=== PATIENT | female | born 1930 | race Hispanic/Latino ===

== ENCOUNTER 2016-10-22 01:42 | Inpatient (IN) | payer MEDICARE ==
[2016-10-22 02:27] LABS: Bilirubin,Urine NEG (Negative); Blood,Urine SM (Negative); Ketones,Urine TR mg/dL (Negative); Leukocyte Esterase,Urine TR (Negative); Nitrite,Urine POS (Negative); Protein,Urine <15 mg/dL mg/dL (Negative); Urobilinogen,Urine < 2.0 mg/dL (<2.0)
[2016-10-22 02:53] LABS: Alanine Aminotransferase 27 units/L (7-56); Albumin 3.3 g/dL (3.9-5); Albumin/Globulin Ratio 1.4 %; Alkaline Phosphatase 51 units/L (35-129); Anion Gap 15 mmol/L; Bilirubin,Total 0.5 mg/dL (0.1-1.2); Blood Urea Nitrogen 9 mg/dL (7-17); Calcium 7.9 mg/dL (8.4-10.2); Carbon Dioxide 21 mmol/L (22-30); Chloride 85.2 mmol/L (98-107); Glucose 129 mg/dL (65-100); Potassium 3.2 mmol/L (3.6-5.0); Total Protein 5.7 g/dL (6.3-8.2)
[2016-10-22 03:07] LABS: Sodium 119 mmol/L (137-145)
[2016-10-22] MEDS ORDERED: NACL 0.9% 1000 ML 1,000 ML ONE (04:03)
--- NOTE | 2016-10-22 04:06 | Emergency Department Report ---
- General Chief complaint: Weakness Stated complaint: FEVER Time Seen by Provider: 10/22/16 03:49 Source: patient, family, EMS Mode of arrival: Stretcher Limitations: Physical Limitation - History of Present Illness Initial comments: This is a pleasant 86-year-old female who indicates that she had increased weakness over the last 2 days. She finally called her son for help. He found her in a condition where she was unable even to get to the door to help him in. She has been needing to use the bathroom frequently. She reports several falls she has not hurt her head in anyway during these falls. She does have some mild tenderness in her left knee from the fall however. She states that she's had increased urination. She's had some burning with urination as well. Fever was noted to be 102 at home prior to arrival. He was noted to be profoundly weak as well. She denies any chest pain or cough she denies sore throat or headache. She denies any lesions on her skin. No abdominal pain no vomiting or diarrhea. Severity scale (0 -10): 0 - Related Data Home Medications Medication Instructions Recorded Confirmed Last Taken Aspirin [Aspirin BABY CHEW TAB] 81 mg PO DAILY 10/22/16 10/22/16 1 Day Ago 81 Hydralazine HCl [Apresoline TAB] 50 mg PO DAILY 10/22/16 10/22/16 1 Day Ago 50 Levothyroxine [Synthroid] 75 mcg PO QAM 10/22/16 10/22/16 1 Day Ago 75mcg Allergies Allergy/AdvReac Type Severity Reaction Status Date / Time ciprofloxacin Allergy Unknown Verified 05/09/14 07:43 codeine Allergy Unknown Verified 05/09/14 07:43 ED Review of Systems ROS: Stated complaint: FEVER Other details as noted in HPI Comment: All other systems reviewed and negative Constitutional: chills, fever, weakness Eyes: denies: eye pain, eye discharge, vision change ENT: denies: ear pain, throat pain Respiratory: denies: cough, shortness of breath, wheezing Cardiovascular: denies: chest pain, palpitations Endocrine: no symptoms reported Gastrointestinal: denies: abdominal pain, nausea, diarrhea Genitourinary: urgency, dysuria. denies: discharge Musculoskeletal: denies: back pain, joint swelling, arthralgia Skin: denies: rash, lesions Neurological: denies: headache, weakness, paresthesias Psychiatric: denies: anxiety, depression Hematological/Lymphatic: denies: easy bleeding, easy bruising ED Past Medical Hx - Past Medical History Previous Medical History?: Yes Hx Hypertension: Yes Hx COPD: Yes Additional medical history: hypothyroid,gerd,divertic - Surgical History Past Surgical History?: No - Social History Smoking Status: Never Smoker Substance Use Type: None - Medications Home Medications: Home Medications Medication Instructions Recorded Confirmed Last Taken Type Aspirin [Aspirin BABY CHEW TAB] 81 mg PO DAILY 10/22/16 10/22/16 1 Day Ago History 81 Hydralazine HCl [Apresoline TAB] 50 mg PO DAILY 10/22/16 10/22/16 1 Day Ago History 50 Levothyroxine [Synthroid] 75 mcg PO QAM 10/22/16 10/22/16 1 Day Ago History 75mcg ED Physical Exam - General Limitations: Physical Limitation General appearance: alert, in distress (due to weakness) - Head Head exam: Present: atraumatic, normocephalic - Eye Eye exam: Present: normal appearance, EOMI. Absent: scleral icterus - ENT ENT exam: Present: mucous membranes dry, other (no oral lesions. No pharyngeal erythema.) - Neck Neck exam: Present: normal inspection, full ROM. Absent: tenderness, meningismus, lymphadenopathy - Respiratory Respiratory exam: Present: normal lung sounds bilaterally. Absent: respiratory distress, wheezes, rales - Cardiovascular Cardiovascular Exam: Present: regular rate, normal rhythm. Absent: systolic murmur, diastolic murmur, rubs, gallop - GI/Abdominal GI/Abdominal exam: Present: soft, normal bowel sounds. Absent: distended, tenderness, organomegaly, pulsatile mass - Extremities Exam Extremities exam: Present: normal inspection, full ROM. Absent: tenderness - Back Exam Back exam: Present: normal inspection - Neurological Exam Neurological exam: Present: alert, oriented X3 - Psychiatric Psychiatric exam: Present: normal affect, normal mood - Skin Skin exam: Present: warm, dry, intact, normal color. Absent: rash ED Course Vital Signs 10/22/16 10/22/16 10/22/16 01:53 02:01 02:20 Temperature 99.2 F 99.2 F Pulse Rate 72 72 Respiratory 16 16 16 Rate Blood Pressure 138/62 Blood Pressure 138/62 138/62 [Left] O2 Sat by Pulse 96 96 Oximetry 10/22/16 04:22 Temperature Pulse Rate 66 Respiratory 16 Rate Blood Pressure Blood Pressure 162/64 [Left] O2 Sat by Pulse 97 Oximetry - Reevaluation(s) Reevaluation #1: 10/22/16 03:49 ECG at 02 35 with sinus rhythm at 66 bpm with a normal CT and QRS. Normal axis is noted as well. There are some nonspecific T-wave inversions noted no reciprocal is noted however. Reevaluation #2: 10/22/16 06:12 Patient was afebrile upon presentation here. She did have 1000 g of Tylenol prior to arrival however. She clinically does appear dehydrated. She does appear quite weak and frail as well. There are some left to rule out abnormalities noted with the sodium of 119 and potassium 3.2. With the story of having a low sodium at [address] [place] [id number] 2 weeks ago I am less inclined to think this is an acute drop in sodium. Regardless patient was given some volume replacement here. Urinalysis does demonstrate some mild infection. Does not appear that impressive however. Patient was started on antibiotics I did select Rocephin initially. Lactate is still pending. Blood cultures were drawn 2. Chest x-ray was unremarkable in general. My suspicion is the primary etiology for the infection is urine. Patient quite weak surprisingly she does not meet any criteria for sepsis. I feel she is a brittle patient however. Did speak with the hospitalist for admission. 10/22/16 06:13 ED Medical Decision Making - Lab Data Result diagrams: 10/22/16 04:46 10/22/16 02:15 - Radiology Data interpreted by me: nml cardiac silhouette. no pna. Critical care attestation.: If time is entered above; I have spent that time in minutes in the direct care of this critically ill patient, excluding procedure time. ED Disposition Clinical Impression: Hyponatremia Fever Qualifiers: Encounter type: initial encounter UTI (urinary tract infection) Qualifiers: Urinary tract infection type: acute cystitis Hematuria presence: without hematuria Qualified Code(s): N30.00 - Acute cystitis without hematuria Disposition: OP ADMITTED IP TO THIS HOSP Is pt being admited?: Yes Does the pt Need Aspirin: No Condition: Stable Referrals: SARAH MONTANA JR, MD [Primary Care Provider] - 3-5 Days Time of Disposition: 05:21
[2016-10-22] MEDS ORDERED: NACL 0.9% 1000 ML 1,000 ML IV ONE ×2 (04:23→22:26)
[2016-10-22 05:13] LABS: Basophils % (Auto) 0.4 % (0.0-1.8); Eosinophils % (Auto) 0.8 % (0.0-4.3); Hematocrit 32.8 % (30.3-42.9); Mean Corpuscular HGB Conc 34 % (30-34); Mean Corpuscular Hemoglobin 29 pg (28-32); Mean Corpuscular Volume 86 fl (79-97); Platelet Count 216 K/mm3 (140-440); Red Blood Count 3.81 M/mm3 (3.65-5.03); Red Cell Distribution Width 13.9 % (13.2-15.2); White Blood Count 5.3 K/mm3 (4.5-11.0)
[2016-10-22] MEDS ORDERED: ROCEPHIN/NS 1 GM/50 ML 1 GM/50 ML BAG IV ONE (05:17)
[2016-10-22] MEDS ORDERED: DULCOLAX PR PRN (05:55)
[2016-10-22] MEDS ORDERED: TYLENOL PO PRN (05:55)
[2016-10-22] MEDS ORDERED: MILK OF MAGNESIA PO PRN (05:55)
[2016-10-22] MEDS ORDERED: ZOFRAN IV PRN (05:55)
--- NOTE | 2016-10-22 05:58 | Admit Criteria Form ---
Admission Criteria Documentation: HYPONATREMIA; HYPERNATREMIA; HYPOKALEMIA; HYPERKALEMIA; HYPOCALCEMIA; HYPERCALCEMIA Clinical Indications for Inpatient Care (Place 'X' for any and all applicable criteria): Ongoing inpatient care may be indicated for ANY ONE of the following [G](1)(2)(3 )(5): [ X]I. Hyponatremia with ANY ONE of the following: [X ]a) Sodium less than 130 mEq/L (mmol/L) (new) (6)(22) [ ]b) Sodium less than 135 mEq/L (mmol/L) with ANY ONE of the following: [ ]i) Severe medical etiology requiring inpatient management (eg, heart failure, hypovolemia) [ ]ii) Altered mental status [ ]iii) Seizures [ ]II. Hypernatremia with ANY ONE of the following: [ ]a) Sodium greater than 155 mEq/L (mmol/L) [ ]b) Sodium greater than 150 mEq/L (mmol/L) with ANY ONE of the following: [ ] i) Altered mental status [ ]ii) Seizures [ ]iii) Severe medical etiology (eg, hypovolemia, diabetes insipidus) [ ]iv) Severe weakness [ ]v) Severe medical etiology (eg, hemolysis, infection, drug overdose) [ ]III. Hypokalemia with ANY ONE of the following: [ ]a) Potassium less than 2.5 mEq/L (mmol/L) despite outpatient and emergency treatment [ ]b) Potassium less than 3.0 mEq/L (mmol/L) with ANY ONE of the following: [ ]i) Weakness [ ]ii) Cardiac abnormality (eg, arrhythmia, conduction disturbance) [ ]iii) Cardiac ischemia [ ]iv) Ileus [ ]v) Ongoing medical cause requiring inpatient management. ( e.g., acute renal wasting, SIADH) [ ]vi) Other severe symptoms [ ] IV. Hyperkalemia with ANY ONE of the following: [ ]a) Potassium greater than 6.5 mEq/L (mmol/L) [ ]b) Potassium greater than 5 mEq/L (mmol/L) with ANY ONE of the following: [ ]i) Severe ECG findings [H] [ ]ii) Acute worsening of renal failure (creatinine greater than 2.5 mg/dL (221 micromoles/L) or significant elevation for age and size) [ ] V. Hypocalcemia with ANY ONE of the following: [ ]a) Calcium less than 7 mg/dL (1.75 mmol/L) despite outpatient and emergency treatment(19) [ ]b) Calcium less than 8 mg/dL (2 mmol/L) with significant symptoms or findings; examples include: [ ]i) Cardiac abnormality (eg, arrhythmia or conduction disturbance) [ ]ii) Altered mental status [ ]iii) Seizures [ ]iv) Breathing difficulty [ ]v) Muscle spasms [ ]. Hypercalcemia with ANY ONE of the following: [ ]a) Calcium greater than 14 mg/dL (3.5 mmol/L) [ ]b) Calcium greater than 12 mg/dL (3 mmol/L) with ANY ONE of the following: [ ]i) Significant dehydration or hypovolemia as indicated by ANY ONE of the following(2): [ ]1. Clinically significant dehydration as indicated by ANY ONE of the following: [ ]A. Acute loss of weight from baseline (5% of body weight in adults, 9% in pediatric patients) [ ]B. Hemodynamic instability [ ]C. Acute renal failure [ ]D. Serum sodium greater than 150 mEq/L (mmol/L) [ ]2) Dehydration that is persistent indicated by ALL of the following: [ ]A. Oral rehydration therapy not tolerated or insufficient to adequately correct dehydration [ ]B. Appropriate intravenous treatment (eg, fluids ) does not readily correct dehydration ie, after 12 to 24 hours of treatment) [ ]ii) Significant symptoms or findings; examples include: [ ]1) Altered mental status [ ]2) Cardiac abnormality (eg, arrhythmia, conduction disturbance) [ ]3) Cardiac abnormality (eg, arrhythmia, conduction disturbance) The original [employer] of [facility] [employer] content created by [employer] has been revised. The portions of the content which have been revised are identified through the use of italic text or in bold, and [facility] has neither reviewed nor approved the modified material. All other unmodified content is copyright [facility] [employer] Please see references footnoted in the original [facility] [employer] edition 2016 Admission Criteria Met: Yes
[2016-10-22] MEDS ORDERED: NACL 0.9% 1000 ML 1,000 ML IV SCH (06:00)
--- NOTE | 2016-10-22 06:06 | History and Physical Report ---
History of Present Illness Date of examination: 10/22/16 History of present illness: 86-year-old woman with a history of hypertension, hypothyroidism, GERD comes emergency room because of fever and frequent urination. Also Described of the Patient's 7 Generalized Weakness, and Has Had Multiple Falls over the Last Few Days. She was admitted at [facility] 2 weeks ago for hyponatremia, her diuretic was discontinued and she was started on hydralazine 50 mg twice a day. The patient as been feeling dizzy and sleeping all day, she followed up with her primary care who cut the medications and half. The patient was still symptomatic, they told her to take half in the morning and 1 at night. The patient dizziness worsened, the son went to check on her, he thinks the patient took 75mg of the hydralazine instead of 25 mg. Patient denies chest pain, palpitation, shortness of breath, cough, abdominal pain, hematochezia, dysuria, frequency, focal weakness, dysarthria, polydipsia hot or cold intolerance, easy bruisability, or rash or bleeding from mucosal membrane, rhinorrhea, epistaxis, earache, tinnitus, blurry vision, eye discharge , anxiety, depression. Other review of systems negative PAST SURGICAL HISTORY: None SOCIAL HISTORY: Denies alcohol, tobacco, drugs FAMILY HISTORY: Hypertension Medications and Allergies Allergies Allergy/AdvReac Type Severity Reaction Status Date / Time ciprofloxacin Allergy Unknown Verified 05/09/14 07:43 codeine Allergy Unknown Verified 05/09/14 07:43 Home Medications Medication Instructions Recorded Confirmed Last Taken Type Aspirin [Aspirin BABY CHEW TAB] 81 mg PO DAILY 10/22/16 10/22/16 1 Day Ago History 81 Hydralazine HCl [Apresoline TAB] 50 mg PO DAILY 10/22/16 10/22/16 1 Day Ago History 50 Levothyroxine [Synthroid] 75 mcg PO QAM 10/22/16 10/22/16 1 Day Ago History 75mcg Exam - Physical Exam Narrative exam: Gen. appearance: Patient lying in bed, no apparent distress HEENT: Normocephalic, atraumatic, pupils equally round and reactive to light, extraocular movement intact, and no sclericterus,. No JVD or thyromegaly or nodule,neck supple, no carotid bruit ,mucous membranes moist, no exudate or erythema Heart: S1, S2, regular rate and rhythm Lungs: Clear to auscultation bilaterally, breathing comfortable Abdomen: Positive bowel sounds, nontender, nondistended, no organomegaly Extremity: No edema, cyanosis, clubbing Skin: No rash, nodules, warm, dry Neuro: Oriented 3, cranial nerves II-12 intact, speech is fluent, motor and sensory intact - Constitutional Vitals: Temp Pulse Resp BP Pulse Ox 99.2 F 66 16 162/64 97 10/22/16 02:01 10/22/16 04:22 10/22/16 04:22 10/22/16 04:22 10/22/16 04:22 Results - Labs CBC & Chem 7: 10/22/16 04:46 10/22/16 02:15 Labs: Abnormal lab results 10/22/16 10/22/16 10/22/16 Range/Units 02:15 02:15 04:46 Lymph % (Auto) 3.8 L (13.4-35.0) % Lymph # 0.2 L (1.2-5.4) K/mm3 Seg Neutrophils % 87.7 H (40.0-70.0) % Sodium 119 L* (137-145) mmol/L Potassium 3.2 L (3.6-5.0) mmol/L Chloride 85.2 L (98-107) mmol/L Carbon Dioxide 21 L (22-30) mmol/L Creatinine 0.5 L (0.7-1.2) mg/dL Glucose 129 H (65-100) mg/dL Calcium 7.9 L (8.4-10.2) mg/dL AST 55 H (5-40) units/L Total Protein 5.7 L (6.3-8.2) g/dL Albumin 3.3 L (3.9-5) g/dL Urine WBC (Auto) 14.0 H (0.0-6.0) /HPF - Imaging and Cardiology EKG: image reviewed Chest x-ray: image reviewed Assessment and Plan Severe hyponatremia Urinary tract infection Hypertension Hypothyroidism Admits medicine Start IV fluid, monitor sodium, consult renal Start IV Rocephin, follow cultures Continue appropriate outpatient medications, start DVT prophylaxis
--- NOTE | 2016-10-22 07:49 | XRay Report ---
AP CHEST: HISTORY: Fever There is mild hyperinflation which is unchanged since 06/11/16. The lungs are clear. Heart size is at the upper limits of normal. Normal pulmonary vascularity. IMPRESSION: Mild hyperinflation. No acute cardiopulmonary process.
[2016-10-22] MEDS: LOVENOX SUB-Q SCH (10:39)
[2016-10-22] MEDS: SYNTHROID PO SCH (11:54)
[2016-10-22 13:36] LABS: Anion Gap 17 mmol/L; Blood Urea Nitrogen 7 mg/dL (7-17); Calcium 8.1 mg/dL (8.4-10.2); Carbon Dioxide 23 mmol/L (22-30); Chloride 93.6 mmol/L (98-107); Glucose 126 mg/dL (65-100); Potassium 3.3 mmol/L (3.6-5.0); Sodium 130 mmol/L (137-145)
--- NOTE | 2016-10-22 15:00 | Progress Note ---
Assessment and Plan Assessment and plan: Patient is a 86-year-old woman with a history of hypertension and hypothyroidism who presents with altered mental status. Recently patient has been on a primary care provider getting her blood pressure medication adjusted. She was on diuretics but sodium level was too low. She was changed to the hydralazine twice a day but it was making her dizzy. She was admitted overnight with a sodium level 119, reports that she was hypovolemic/dry. I repeated her sodium level at noon and it was 130; which is being corrected too fast. So I stopped the IVF. I do not think she needs dextrose or desmopressin because she has not overcorrected yet. Await nephrology. -Acute metabolic encephalopathy, poa -Severe hyponatremia: Repeat BMP a.m. await nephrology -Hypertension, chronic and worsening: Stop hydralazine start Norvasc -Hypothyroidism restarted her levothyroxine, TSH normal -UTI, allergic to Cipro: IV Rocephin await urine culture History Interval history: Patient seen and examined. Follow up on altered mental status which is resolved. Overnight uneventful. No cp, sob, n/v or severe headaches. Imaging, old records, testing, labs, nursing notes reviewed. Plan discussed with patient. Son Yovanny at bedside Hospitalist Physical - Physical exam Narrative exam: GEN: WDWN, NAD, AWAKE, ALERT, ORIENTATED 3 HEENT: NCAT, PERRL, EOMI, OP CLEAR NECK: SUPPLE, NO THYROMEGALY, NO JVD, NO LAD CVS: RRR, NORMAL S1S2 LUNGS/CHEST: CTA B, NORMAL CHEST EXPANSION B, GOOD AIR ENTRY B ABD: SOFT, MILD SUPRAPUBIC TENDERNESS WITHOUT DISTENTION, GBS, NO REBOUND OR GUARDING EXT/SKIN: NO SIGNIFICANT EDEMA OR RASH, appears euvolemic MSK: FROM X 4 EXTREMITIES NEURO: CN 2-12 GROSSLY INTACT except for hearing, NO new FOCAL DEFICITS PSY: CALM - Constitutional Vitals: Temp Pulse Resp BP Pulse Ox 100.4 F H 64 14 159/66 98 10/22/16 11:00 10/22/16 07:40 10/22/16 07:40 10/22/16 07:40 10/22/16 07:40 Results - Labs CBC & Chem 7: 10/23/16 04:27 10/23/16 04:27 Labs: Laboratory Last Values WBC 5.3 K/mm3 (4.5-11.0) 10/22/16 04:46 RBC 3.81 M/mm3 (3.65-5.03) 10/22/16 04:46 Hgb 11.0 gm/dl (10.1-14.3) 10/22/16 04:46 Hct 32.8 % (30.3-42.9) 10/22/16 04:46 MCV 86 fl (79-97) 10/22/16 04:46 MCH 29 pg (28-32) 10/22/16 04:46 MCHC 34 % (30-34) 10/22/16 04:46 RDW 13.9 % (13.2-15.2) 10/22/16 04:46 Plt Count 216 K/mm3 (140-440) 10/22/16 04:46 Lymph % (Auto) 3.8 % (13.4-35.0) L 10/22/16 04:46 Hart % (Auto) 7.3 % (0.0-7.3) 10/22/16 04:46 Eos % (Auto) 0.8 % (0.0-4.3) 10/22/16 04:46 Baso % (Auto) 0.4 % (0.0-1.8) 10/22/16 04:46 Lymph # 0.2 K/mm3 (1.2-5.4) L 10/22/16 04:46 Hart # 0.4 K/mm3 (0.0-0.8) 10/22/16 04:46 Eos # 0.0 K/mm3 (0.0-0.4) 10/22/16 04:46 Baso # 0.0 K/mm3 (0.0-0.1) 10/22/16 04:46 Seg Neutrophils % 87.7 % (40.0-70.0) H 10/22/16 04:46 Seg Neutrophils # 4.6 K/mm3 (1.8-7.7) 10/22/16 04:46 Sodium 130 mmol/L (137-145) L D 10/22/16 12:54 Potassium 3.3 mmol/L (3.6-5.0) L 10/22/16 12:54 Chloride 93.6 mmol/L (98-107) L 10/22/16 12:54 Carbon Dioxide 23 mmol/L (22-30) 10/22/16 12:54 Anion Gap 17 mmol/L 10/22/16 12:54 BUN 7 mg/dL (7-17) 10/22/16 12:54 Creatinine 0.5 mg/dL (0.7-1.2) L 10/22/16 12:54 Estimated GFR > 60 ml/min 10/22/16 12:54 BUN/Creatinine Ratio 14.00 % 10/22/16 12:54 Glucose 126 mg/dL (65-100) H 10/22/16 12:54 Lactic Acid 0.8 mmol/L (0.7-2.0) 10/22/16 04:46 Calcium 8.1 mg/dL (8.4-10.2) L 10/22/16 12:54 Total Bilirubin 0.5 mg/dL (0.1-1.2) 10/22/16 02:15 AST 55 units/L (5-40) H 10/22/16 02:15 ALT 27 units/L (7-56) 10/22/16 02:15 Alkaline Phosphatase 51 units/L (35-129) 10/22/16 02:15 Total Protein 5.7 g/dL (6.3-8.2) L 10/22/16 02:15 Albumin 3.3 g/dL (3.9-5) L 10/22/16 02:15 Albumin/Globulin Ratio 1.4 % 10/22/16 02:15 TSH 1.020 mlU/mL (0.270-4.200) 10/22/16 02:15 Urine Color Yellow (Yellow) 10/22/16 02:15 Urine Turbidity Clear (Clear) 10/22/16 02:15 Urine pH 6.0 (5.0-7.0) 10/22/16 02:15 Ur Specific [place] 1.010 (1.003-1.030) 10/22/16 02:15 Urine Protein <15 mg/dl mg/dL (Negative) 10/22/16 02:15 Urine Glucose (UA) 50 mg/dL (Negative) 10/22/16 02:15 Urine Ketones Tr mg/dL (Negative) 10/22/16 02:15 Urine Blood Sm (Negative) 10/22/16 02:15 Urine Nitrite Pos (Negative) 10/22/16 02:15 Urine Bilirubin Neg (Negative) 10/22/16 02:15 Urine Urobilinogen < 2.0 mg/dL (<2.0) 10/22/16 02:15 Ur Leukocyte Esterase Tr (Negative) 10/22/16 02:15 Urine WBC (Auto) 14.0 /HPF (0.0-6.0) H 10/22/16 02:15 Urine RBC (Auto) 2.0 /HPF (0.0-6.0) 10/22/16 02:15 U Epithel Cells (Auto) 1.0 /HPF (0-13.0) 10/22/16 02:15 Amorphous Crystals Few 10/22/16 02:15
--- NOTE | 2016-10-22 18:07 | Consultation ---
History of Present Illness - Reason for Consult Consult date: 10/22/16 hyponatremia Requesting physician: JOHN FERGUSON - History of Present Illness 86-year-old woman with a history of hypertension, hypothyroidism, GERD comes emergency room because of fever and frequent urination x 2 days duration. In association with that she c/o generalized Weakness and Has Had Multiple Falls over the last Few Days. She was admitted at [facility] 2 weeks ago for hyponatremia, her diuretic was discontinued and she was started on hydrazine 50 mg twice a day for her BP. Her hydrazine dose was reduced by her PCP after she c/o dizziness. On arrival to the ED her initial labs showed that she has a sodium level of 119. She was given a litre of 0.9 NS bolus in ED and started on 75 cc/ hr of 0.9 NS. Repeat sodium level at noon (about 9 hrs after admission) her sodium has been corrected to 130. We are consulted to assist with management of her hyponatremia ? fast correction. Past History Past Medical History: other ( hypertension, hypothyroidism, GERD, hyponatremia, falls, dizziness, UTI) Past Surgical History: No surgical history Social history: denies: smoking, alcohol abuse, IV drug use Family history: hypertension Medications and Allergies Allergies Allergy/AdvReac Type Severity Reaction Status Date / Time ciprofloxacin Allergy Unknown Verified 05/09/14 07:43 codeine Allergy Unknown Verified 05/09/14 07:43 Home Medications Medication Instructions Recorded Confirmed Last Taken Type Aspirin [Aspirin BABY CHEW TAB] 81 mg PO DAILY 10/22/16 10/22/16 1 Day Ago History 81 Hydralazine HCl [Apresoline TAB] 50 mg PO DAILY 10/22/16 10/22/16 1 Day Ago History 50 Levothyroxine [Synthroid] 75 mcg PO QAM 10/22/16 10/22/16 1 Day Ago History 75mcg Active Meds: Active Medications Acetaminophen (Tylenol) 650 mg PO Q4H PRN PRN Reason: Pain MILD(1-3)/Fever >100.5/TORRES Bisacodyl (Dulcolax) 10 mg AR QDAY PRN PRN Reason: Constipation unrelieved by MOM Enoxaparin Sodium (Lovenox) 40 mg SUB-Q QDAY ASHTYN Last Admin: 10/22/16 10:39 Dose: 40 mg Ceftriaxone Sodium (Rocephin/Ns 1 Gm/50 Ml) 1 gm in 50 mls @ 100 mls/hr IV Q24H [facility] Levothyroxine Sodium (Synthroid) 75 mcg PO DAILY@0600 [facility] Last Admin: 10/22/16 11:54 Dose: 75 mcg Magnesium Hydroxide (Milk Of Magnesia) 30 ml PO Q4H PRN PRN Reason: Constipation Review of Systems Constitutional: fatigue, weakness, malaise, lethargy, poor appetite, no weight loss, no weight gain Ears, nose, mouth and throat: no nose pain, no nasal congestion Breasts: deferred Cardiovascular: no chest pain, no orthopnea, no palpitations Respiratory: no cough, no cough with sputum, no hemoptysis, no shortness of breath Gastrointestinal: no abdominal pain, no nausea, no vomiting Genitourinary Female: no pelvic pain, no flank pain Rectal: no pain, no incontinence Musculoskeletal: no neck stiffness, no neck pain Integumentary: no rash, no pruritis, no redness Neurological: weakness, other (falls), no parathesias, no numbness, no tingling , no seizures, no syncope Psychiatric: no anxiety, no memory loss, no insomnia, no hypersomnia Endocrine: no cold intolerance, no heat intolerance Hematologic/Lymphatic: no easy bruising, no easy bleeding Allergic/Immunologic: no urticaria, no allergic rhinitis Exam - Vital Signs Vital signs: Vital Signs Temp Pulse Resp BP Pulse Ox 99.2 F 72 16 138/62 96 10/22/16 01:53 10/22/16 01:53 10/22/16 01:53 10/22/16 01:53 10/22/16 01:53 - General Appearance General appearance: well-developed, well-nourished, appears stated age, fatigue , frail EENT: ATNC, PERRL, mucous membranes moist Neck: Present: neck supple, trachea midline. Absent: JVD/HJR, Masses Respiratory: Clear to Ascultation Heart: regular, normal heart rate, S1S2, no murmurs Gastrointestinal: Present: normal, normoactive bowel sounds. Absent: tenderness , distended, masses, guarding Integumentary: no rash, warm and dry Neurologic: no focal deficit, alert and oriented x3, strength 5/5 Musculoskeletal: Absent: deformities, joint swelling Psychiatric: mood/affect appropriate, cooperative Results - Lab Results 10/22/16 04:46 10/22/16 12:54 Most recent lab results Calcium 8.1 mg/dL (8.4-10.2) L 10/22/16 12:54 Assessment and Plan 1. Hypovolemic hyponatremia 2. Hypokalemia 3. UTI 4. Frequent falls likley 2/2 hyponatremia 5. Hx of Hypothyroidism 6. Essential HTN Plan: Obtain Urine OSM, Serum OSM, Urinelytes, TSH, Cortisol levels CxR unremarkable Her sodium corrected rapidly in the first 9 hours. Will recheck sodium level stat, if it continues to rise will plan for D5W/DDAVP. Goal rate of correction is 10-12 in 24 hrs. Follow up on urine culture Antibiotics Further recommendations to follow based on repeat labs. Thank you for the consult.
[2016-10-22 20:04] LABS: Anion Gap 13 mmol/L; Blood Urea Nitrogen 7 mg/dL (7-17); Calcium 7.6 mg/dL (8.4-10.2); Carbon Dioxide 22 mmol/L (22-30); Chloride 86.5 mmol/L (98-107); Glucose 173 mg/dL (65-100); Uric Acid 2.4 mg/dL (3.5-7.6)
[2016-10-22 22:19] LABS: Sodium 119 mmol/L (137-145)
[2016-10-22 22:20] LABS: Potassium 2.8 mmol/L (3.6-5.0)
--- NOTE | 2016-10-22 22:24 | Event Note ---
Date: 10/22/16 After several phone calls to the lab they finally told us (Na, K not posted on [employer]) the results of the BMP drawn at 18:00. Per lab they were calibrating and checking controls as the results are different from before. The Sodium is at 119 and K is at 2.8. It was rerun on a different equipment. Plan: Will start back IVF 0.9 NS Replete potassium and check magnesium Repeat labs requested in 4 hrs. Discussed with RN to call us with labs for further management
[2016-10-22] MEDS: KCL 10MEQ/100ML 10 MEQ/100 ML BAG IV SCH (22:55)
[2016-10-22 23:22] LABS: Blood Urea Nitrogen 6 mg/dL (7-17); Calcium 7.8 mg/dL (8.4-10.2); Carbon Dioxide 24 mmol/L (22-30); Glucose 92 mg/dL (65-100); Magnesium 1.9 mg/dL (1.7-2.3)
[2016-10-22 23:23] LABS: Anion Gap 14 mmol/L; Chloride 93.2 mmol/L (98-107); Potassium 3.1 mmol/L (3.6-5.0); Sodium 128 mmol/L (137-145)
[2016-10-23] MEDS: KCL 10MEQ/100ML 10 MEQ/100 ML BAG IV SCH (01:08)
[2016-10-23 05:17] LABS: Anion Gap 14 mmol/L; Blood Urea Nitrogen 5 mg/dL (7-17); Calcium 7.9 mg/dL (8.4-10.2); Carbon Dioxide 24 mmol/L (22-30); Chloride 94.7 mmol/L (98-107); Glucose 99 mg/dL (65-100); Potassium 3.1 mmol/L (3.6-5.0); Sodium 130 mmol/L (137-145)
[2016-10-23 05:35] LABS: Basophils % (Auto) 0.4 % (0.0-1.8); Eosinophils % (Auto) 3.6 % (0.0-4.3); Hemoglobin 11.3 gm/dl (10.1-14.3); Mean Corpuscular HGB Conc 34 % (30-34); Mean Corpuscular Hemoglobin 29 pg (28-32); Mean Corpuscular Volume 85 fl (79-97); Platelet Count 206 K/mm3 (140-440); Red Blood Count 3.86 M/mm3 (3.65-5.03); Red Cell Distribution Width 13.9 % (13.2-15.2); White Blood Count 5.8 K/mm3 (4.5-11.0)
[2016-10-23] MEDS: ROCEPHIN/NS 1 GM/50 ML 1 GM/50 ML BAG IV SCH (06:08)
[2016-10-23] MEDS: SYNTHROID PO SCH (06:08)
[2016-10-23] MEDS ORDERED: K-DUR PO ONE (07:13)
[2016-10-23] MEDS: LOVENOX SUB-Q SCH (10:09)
--- NOTE | 2016-10-23 10:11 | Progress Note ---
Assessment and Plan Assessment and plan: Patient is a 86-year-old woman with a history of hypertension and hypothyroidism who presents with altered mental status. Recently patient has been on a primary care provider getting her blood pressure medication adjusted. She was on diuretics but sodium level was too low. She was changed to the hydralazine twice a day but it was making her dizzy. She was admitted overnight with a sodium level 119, reports that she was hypovolemic/dry. I repeated her sodium level at noon and it was 130; which is being corrected too fast. So I stopped the IVF. I do not think she needs dextrose or desmopressin because she has not overcorrected yet. Await nephrology==>restarted ivf and following levels closely. -Acute metabolic encephalopathy, poa, resolved -Severe hyponatremia: Repeat BMP a.m. await nephrology -Hypertension, chronic and worsening: Stop hydralazine start Norvasc -Hypothyroidism restarted her levothyroxine, TSH normal -UTI, allergic to Cipro: IV Rocephin await urine culture Anticipate discharge tomorrow if sodium level is around 130 or above History Interval history: Patient seen and examined. Follow up on altered mental status which has resolved. Overnight uneventful. No cp, sob, n/v or severe headaches. Imaging, old records, testing, labs, nursing notes reviewed. Plan discussed with patient. Hospitalist Physical - Physical exam Narrative exam: GEN: WDWN, NAD, AWAKE, ALERT, ORIENTATED 3 CVS: RRR, NORMAL S1S2 LUNGS/CHEST: CTA B, NORMAL CHEST EXPANSION B, GOOD AIR ENTRY B ABD: SOFT, MILD SUPRAPUBIC TENDERNESS WITHOUT DISTENTION, GBS, NO REBOUND OR GUARDING EXT/SKIN: NO SIGNIFICANT EDEMA OR RASH, appears euvolemic MSK: FROM X 4 EXTREMITIES NEURO: CN 2-12 GROSSLY INTACT except for hearing, NO new FOCAL DEFICITS PSY: CALM - Constitutional Vitals: Temp Pulse Resp BP Pulse Ox 97.9 F 72 16 148/69 95 10/23/16 08:00 10/23/16 08:00 10/23/16 08:00 10/23/16 08:00 10/23/16 08:00 Results - Labs CBC & Chem 7: 10/23/16 04:27 10/23/16 04:27 Labs: Laboratory Last Values WBC 5.8 K/mm3 (4.5-11.0) 10/23/16 04:27 RBC 3.86 M/mm3 (3.65-5.03) 10/23/16 04:27 Hgb 11.3 gm/dl (10.1-14.3) 10/23/16 04:27 Hct 33.0 % (30.3-42.9) 10/23/16 04:27 MCV 85 fl (79-97) 10/23/16 04: MCH 29 pg (28-32) 10/23/16 04:27 MCHC 34 % (30-34) 10/23/16 04:27 RDW 13.9 % (13.2-15.2) 10/23/16 04:27 Plt Count 206 K/mm3 (140-440) 10/23/16 04:27 Lymph % (Auto) 7.7 % (13.4-35.0) L 10/23/16 04:27 Young % (Auto) 8.6 % (0.0-7.3) H 10/23/16 04:27 Eos % (Auto) 3.6 % (0.0-4.3) 10/23/16 04:27 Baso % (Auto) 0.4 % (0.0-1.8) 10/23/16 04:27 Lymph # 0.4 K/mm3 (1.2-5.4) L 10/23/16 04:27 Young # 0.5 K/mm3 (0.0-0.8) 10/23/16 04:27 Eos # 0.2 K/mm3 (0.0-0.4) 10/23/16 04:27 Baso # 0.0 K/mm3 (0.0-0.1) 10/23/16 04:27 Seg Neutrophils % 79.7 % (40.0-70.0) H 10/23/16 04:27 Seg Neutrophils # 4.7 K/mm3 (1.8-7.7) 10/23/16 04:27 Sodium 130 mmol/L (137-145) L 10/23/16 04:27 Potassium 3.1 mmol/L (3.6-5.0) L 10/23/16 04:27 Chloride 94.7 mmol/L (98-107) L 10/23/16 04:27 Carbon Dioxide 24 mmol/L (22-30) 10/23/16 04:27 Anion Gap 14 mmol/L 10/23/16 04:27 BUN 5 mg/dL (7-17) L 10/23/16 04:27 Creatinine 0.5 mg/dL (0.7-1.2) L 10/23/16 04:27 Estimated GFR > 60 ml/min 10/23/16 04:27 BUN/Creatinine Ratio 10.00 % 10/23/16 04:27 Glucose 99 mg/dL (65-100) 10/23/16 04:27 Osmolality 267 Mosm/kg 10/22/16 18:54 Lactic Acid 0.8 mmol/L (0.7-2.0) 10/22/16 04:46 Uric Acid 2.4 mg/dL (3.5-7.6) L 10/22/16 18:54 Calcium 7.9 mg/dL (8.4-10.2) L 10/23/16 04:27 Magnesium 1.9 mg/dL (1.7-2.3) 10/22/16 22:48 Total Bilirubin 0.5 mg/dL (0.1-1.2) 10/22/16 02:15 AST 55 units/L (5-40) H 10/22/16 02:15 ALT 27 units/L (7-56) 10/22/16 02:15 Alkaline Phosphatase 51 units/L (35-129) 10/22/16 02:15 Total Protein 5.7 g/dL (6.3-8.2) L 10/22/16 02:15 Albumin 3.3 g/dL (3.9-5) L 10/22/16 02:15 Albumin/Globulin Ratio 1.4 % 10/22/16 02:15 TSH 0.998 mlU/mL (0.270-4.200) 10/22/16 18:54 Urine Color Yellow (Yellow) 10/22/16 02:15 Urine Turbidity Clear (Clear) 10/22/16 02:15 Urine pH 6.0 (5.0-7.0) 10/22/16 02:15 Ur Specific [place] 1.010 (1.003-1.030) 10/22/16 02:15 Urine Protein <15 mg/dl mg/dL (Negative) 10/22/16 02:15 Urine Glucose (UA) 50 mg/dL (Negative) 10/22/16 02:15 Urine Ketones Tr mg/dL (Negative) 10/22/16 02:15 Urine Blood Sm (Negative) 10/22/16 02:15 Urine Nitrite Pos (Negative) 10/22/16 02:15 Urine Bilirubin Neg (Negative) 10/22/16 02:15 Urine Urobilinogen < 2.0 mg/dL (<2.0) 10/22/16 02:15 Ur Leukocyte Esterase Tr (Negative) 10/22/16 02:15 Urine WBC (Auto) 14.0 /HPF (0.0-6.0) H 10/22/16 02:15 Urine RBC (Auto) 2.0 /HPF (0.0-6.0) 10/22/16 02:15 U Epithel Cells (Auto) 1.0 /HPF (0-13.0) 10/22/16 02:15 Amorphous Crystals Few 10/22/16 02:15 Urine Osmolality 155 Mosm/kg 10/22/16 Unknown
--- NOTE | 2016-10-23 12:02 | Progress Note ---
Assessment and Plan 1. Hypovolemic hyponatremia 2. Hypokalemia 3. UTI 4. Frequent falls likely 2/2 hyponatremia 5. Hx of Hypothyroidism 6. Essential HTN Plan: Sodium level at 130. Rate of correction in the last 24 hrs was at 11 meQ/24 hrs (about 0.5meQ/hr). CxR unremarkable Continue present management Follow up on urine culture Antibiotics Subjective Date of service: 10/23/16 Interval history: Feels better, No SOB/CP Objective - Vital Signs Vital signs: Vital Signs - 12hr 10/23/16 08:00 Temperature 97.9 F Pulse Rate [ 72 From Monitor] Respiratory 16 Rate Blood Pressure 148/69 [Left Arm] O2 Sat by Pulse 95 Oximetry - General Appearance General appearance: well-developed, well-nourished, appears stated age, frail EENT: PERRL, mucous membranes moist Neck: no JVD, no thyromegaly, no carotid bruit, supple Respiratory: Present: Clear to Ascultation. Absent: Wheezes Cardiology: regular, normal heart rate, S1S2, no murmurs Gastrointestinal: normoactive bowel sounds, no tenderness Integumentary: no rash, warm and dry Neurologic: no focal deficit, alert and oriented x3, reflexes 2+ and symmetric, strength 5/5 Musculoskeletal: no deformities, no erythema, no cyanosis, no clubbing Psychiatric: mood/affect appropriate, cooperative - Lab 10/23/16 04:27 10/23/16 04:27 Most recent lab results Calcium 7.9 mg/dL (8.4-10.2) L 10/23/16 04:27 Magnesium 1.9 mg/dL (1.7-2.3) 10/22/16 22:48
[2016-10-23 20:41] VITALS: BP 135/61
[2016-10-24] MEDS: SYNTHROID PO SCH (05:17)
[2016-10-24] MEDS: ROCEPHIN/NS 1 GM/50 ML 1 GM/50 ML BAG IV SCH (05:30)
[2016-10-24 09:29] LABS: Anion Gap 16 mmol/L; Blood Urea Nitrogen 7 mg/dL (7-17); Calcium 8.1 mg/dL (8.4-10.2); Carbon Dioxide 23 mmol/L (22-30); Chloride 97.9 mmol/L (98-107); Glucose 93 mg/dL (65-100); Potassium 4.1 mmol/L (3.6-5.0); Sodium 133 mmol/L (137-145)
[2016-10-24] MEDS: LOVENOX SUB-Q SCH (09:30)
--- NOTE | 2016-10-24 13:33 | Discharge Summary ---
Providers - Providers Date of Admission: 10/22/16 05:55 Date of discharge: 10/24/16 Attending physician: JOHN FERGUSON 10/22/16 05:59 Physical Therapy Evaluation and Treat [CONS] Routine Comment: Reason For Exam: tx and evql Primary care physician: SARAH MONTANA Hospitalization Condition: Stable Hospital course: Patient is a 86-year-old woman with a history of hypertension and hypothyroidism who presents with altered mental status. Recently patient has been on a primary care provider getting her blood pressure medication adjusted. She was on diuretics but sodium level was too low. She was changed to the hydralazine twice a day but it was making her dizzy. She was admitted overnight with a sodium level 119, reports that she was hypovolemic/dry. I repeated her sodium level at noon and it was 130; which is being corrected too fast. So I stopped the IVF. I do not think she needs dextrose or desmopressin because she has not overcorrected yet. Await nephrology==>restarted ivf and following levels closely. -Acute metabolic encephalopathy, poa, resolved -Severe hyponatremia: Repeat BMP a.m. await nephrology -Hypertension, chronic and worsening: Stop hydralazine start Norvasc -Hypothyroidism restarted her levothyroxine, TSH normal -UTI, allergic to Cipro: IV Rocephin await urine culture Disposition: DISCHARGED TO HOME OR SELFCARE Time spent for discharge: 34 minutes Core Measure Documentation - Palliative Care Palliative Care/ Comfort Measures: Not Applicable - Core Measures Any of the following diagnoses?: none - VTE Discharge Requirements Deep Vein Thrombosis/Pulmonary Embolism Present on Admission: No Has pt received <5 days of overlap therapy or INR<2.0: No Anticoagulant overlap therapy prescribed at discharge: No Contraindication No Overlap Therapy order at DC: Not Indicated Exam - Physical Exam Narrative exam: GEN: WDWN, NAD, AWAKE, ALERT, ORIENTATED 3 CVS: RRR, NORMAL S1S2 LUNGS/CHEST: CTA B, NORMAL CHEST EXPANSION B, GOOD AIR ENTRY B ABD: SOFT, MILD SUPRAPUBIC TENDERNESS WITHOUT DISTENTION, GBS, NO REBOUND OR GUARDING EXT/SKIN: NO SIGNIFICANT EDEMA OR RASH, appears euvolemic MSK: FROM X 4 EXTREMITIES NEURO: CN 2-12 GROSSLY INTACT except for hearing, NO new FOCAL DEFICITS PSY: CALM - Constitutional Vitals: Temp Pulse Resp BP Pulse Ox 99.5 F 65 16 135/61 97 10/23/16 20:00 10/24/16 11:20 10/23/16 20:00 10/23/16 20:00 10/23/16 20:00 Plan Activity: advance as tolerated (no strenous activities until cleared by pcp), up only with assistance, fall precautions Diet: low salt Special Instructions: record daily BP diary Follow up with: SARAH MONTANA JR, MD [Primary Care Provider] - 3-5 Days Prescriptions: Amlodipine Besylate [Norvasc] 2.5 mg PO DAILY #30 tab Cholecalciferol (Vitamin D3) [Vitamin D3] 2,000 unit PO QDAY #30 capsule [place]-3 Fatty Acids/Fish Oil [Fish Oil] 1 each PO DAILY #30 capsule
--- NOTE | 2016-10-24 15:29 | Progress Note ---
Assessment and Plan 1. Hypovolemic hyponatremia 2. Hypokalemia 3. UTI 4. Frequent falls likely 2/2 hyponatremia 5. Hx of Hypothyroidism 6. Essential HTN Plan: Hyponatremia improved. Sodium at 133 today Hypokalemia also resolved Advised to follow upin office in 1-2 weeks for recheck of her sodium Subjective Date of service: 10/24/16 Interval history: No SOB/CP Objective - Vital Signs Vital signs: Vital Signs - 12hr 10/24/16 11:20 Pulse Rate [ 65 From Monitor] - General Appearance General appearance: well-developed, well-nourished, appears stated age, frail EENT: PERRL, mucous membranes moist Neck: no JVD, no thyromegaly, no carotid bruit, supple Respiratory: Present: Clear to Ascultation. Absent: Wheezes Cardiology: regular, normal heart rate, S1S2, no murmurs Gastrointestinal: normoactive bowel sounds, no tenderness Integumentary: no rash, warm and dry Neurologic: no focal deficit, alert and oriented x3, reflexes 2+ and symmetric, gait normal, strength 5/5 Musculoskeletal: other (no edema, clubbing ) Psychiatric: mood/affect appropriate, cooperative - Lab 10/23/16 04:27 10/24/16 09:00 Most recent lab results Calcium 8.1 mg/dL (8.4-10.2) L 10/24/16 09:00 Magnesium 1.9 mg/dL (1.7-2.3) 10/22/16 22:48
== END 2016-10-24 16:25 | DRG 640 ==
LOC: ED 01:42 → CC2 05:55
PROVIDERS: ADMIT Internal Medicine; ATTEND Internal Medicine
DX: E87.1 Hypo-osmolality and hyponatremia (principal); G93.41 Metabolic encephalopathy; N39.0 Urinary tract infection, site not specified; I10 Essential (primary) hypertension; E03.9 Hypothyroidism, unspecified; J44.9 Chronic obstructive pulmonary disease, unspecified; K21.9 Gastro-esophageal reflux disease without esophagitis; Z88.6 Allergy status to analgesic agent; Z88.8 Allergy status to other drugs, medicaments and biological substances; Z82.49 Family history of ischemic heart disease and other diseases of the circulatory system
CPT/HCPCS: 36415; 71010; 80048; 80053; 81001; 82140; 83735; 83930; 83935; 84295; 84443; 84550; 85025; 87040; 87086; 87400; 93005; 93010; 96361; 96365; G8978-GP; G8979-GP; J0696; J1650; J3480; J7030